=== PATIENT | male | born 1975 | race Two or more races ===

== ENCOUNTER 2019-11-09 11:30 | Inpatient (IN) | payer OTHER ==
[~2019-11-09] VITALS: Ht 165.1 cm; Wt 59.9 kg
[2019-11-19] MEDS ORDERED: INTESTINEX680 M1 PO (09:18)
[2019-11-19] MEDS ORDERED: PERCOCET 5-3251 EACH PO (09:18)
[2019-11-19] MEDS ORDERED: PRILOSEC OTC20 MG PO (09:18)
== END 2019-11-19 12:49 | disposition home or self-care (01) | DRG 331 ==
LOC: EDSTATUS 11:30 → ADM 11:30 → O/R 11-16 06:10 → SURG 11-16 06:10 → SURH 11-16 11:30 → SURG 11-19 12:49
PROVIDERS: ADMIT Surgery; ATTEND Surgery
PROC: 0DBN4ZZ Excision of Sigmoid Colon, Percutaneous Endoscopic Approach (ICD-10-PCS; 2019-11-16)
PROC: 0DJD8ZZ Inspection of Lower Intestinal Tract, Via Natural or Artificial Opening Endoscopic (ICD-10-PCS; 2019-11-16)
PROC: 0DTP4ZZ Resection of Rectum, Percutaneous Endoscopic Approach (ICD-10-PCS; principal; 2019-11-16 14:30)
DX: C18.7 Malignant neoplasm of sigmoid colon (principal); D50.0 Iron deficiency anemia secondary to blood loss (chronic)

== ENCOUNTER 2019-11-15 05:51 | Day surgery (SDC) | payer OTHER | END 2019-11-15 11:05 | disposition home or self-care (01) | LOC: AMB-ENDOS 05:51 | PROVIDERS: ATTEND Surgery | DX: C18.7 Malignant neoplasm of sigmoid colon (principal) ==